=== PATIENT | female | born 1945 | race Caucasian/White ===

== ENCOUNTER 2024-09-10 06:08 | Day surgery (SDC) | payer MEDICARE, OTHER, SELFPAY ==
--- NOTE | 2024-09-09 16:06 | CONSULT.STRU ---
Consultation
-
Date/Time Consultation Requested: 09/10/2024
Date/Time Consultation Performed: 09/10/2024
Requesting Provider: Max Rocha MD
Performing Provider: EMERALD Calixto
Reason for Consultation: /TAVR
Patient History
Physicians
Family Physician: Nkechi Nichols DO
Outpatient Horse Trekking Guide: Gennaro Ny MD
Primary Horse Trekking Guide: Gennaro Ny MD
History of Present Illness
Ms. 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 Her echocardiogram from 07/31/2024 demonstrates an EF 60%, MAC with mid-moderate
MR, AV P/M54/42, mild-moderate , mild TR. From a symptomatic standpoint patient describes CAMPUZANO and fatigue. Ms. Shell states she was able to walk 1 mile on the treadmill 1 year ago and now can only do about 1/4 of a mile before she needs to rest.
Discussed the pathophysiology and treatment options of aortic stenosis including SAVR and TAVR. Explained the evaluation process comprising of repeat labs, TAVR CT scan, CT surgical consult, dental clearance, and a heart team discussion. TAVR
booklet, prescriptions, appointments, and contact information given to patient.
Past Medical History
Past Medical History: Atrial Fib (AT/Aflutter/ possible AF), HTN, Radiation (to chest), Valvular Disease (aortic stenosis) and Other (non-Hodgkins, CHB, NICM, diverticulosis, osteoporosis, hypercalcemia, hyperlipidemia, hypercalcemia)
Past Surgical History
Past Surgical History: Appendectomy and Other (PPM, ICD, lymph node resection, bilateral cataract)
Dental History
Dr. Salazar-- patient states she is UTD (last visit 06/2024)
Family History
Mother: at Age (664) and Cause of (malignant neoplasm)
Father: at Age (67) and Cause of (heart disease)
Social History
Alcohol: Occasional
Drug: None
Tobacco: Non-Smoker
Personal:
Living: With Spouse
Employment: Retired
Allergies
bandaids
Home Medications
Cyclobenzaprine HCl 5 MG Tablet TK 1 T PO D PRF BACK SPASMS Oral prn
Famciclovir 500 MG Tablet 1 tablet Orally Once a Day
Lisinopril 2.5 MG Tablet 1 tablet Orally Twice a Day
Metoprolol Tartrate 25 MG Tablet 1/2 tablet Orally Twice a day
Pred Mild(prednisoLONE Acetate) 0.12 % Suspension INT 1 GTT INTO OS ONCE A WEEK Ophthalmic
Rosuvastatin Calcium 10 MG Tablet TAKE 1 TABLET BY MOUTH ONCE DAILY
STS%
STS %: 8
Review of Systems
-
History Source: Patient
General: Reports Fatigue
HEENT: Reports No Symptoms
Respiratory: Reports CAMPUZANO
Cardiac: Reports No Symptoms
Abdomen/GI: Reports No Symptoms
: Reports No Symptoms
Musculoskeletal: Reports No Symptoms
Skin: Reports No Symptoms
Neurological: Reports No Symptoms
Vascular: Reports No Symptoms
Physical Exam
Labs
09/03/2024
HH: 12.4/37.0
Plt: 213K
BUN/CR: 11/08.02
GFR 56
Diagnostic Studies
ECHOCARDIOGRAM 07/31/2024
CONCLUSIONS
Technically suboptimal and limited study.
Grossly normal left and right ventricular systolic function.
Grade 2 diastolic dysfunction.
Chamber sizes were normal.
Severe aortic stenosis with mild to at most moderate aortic insufficiency.
Mild mitral, tricuspid and pulmonic regurgitation
Atherosclerotic aortic root
Compared to the report of echo Doppler from 04/04/2024, the mean aortic valve
gradient has minimally increased.
Aortic Valve
Aortic valve leaflets are poorly visualized. Number of leaflets cannot be
determined. The valve did appear to be thickened, calcified and deformed with
markedly decreased opening. There is mild to at most moderate aortic
insufficiency. Peak and mean gradients across aortic valve is in the range of
54 and 42 mmHg respectively. This would correspond with severe aortic
stenosis.
Procedure Type:�Isolated AVR
Perioperative Outcome Estimate %
Operative Mortality 8%
Morbidity & Mortality 12.6%
Stroke 1.5%
Renal Failure 3.71%
Reoperation 4.36%
Prolonged Ventilation 8.65%
Deep Sternal Wound Infection 0.038%
Long Hospital Stay (>14 days) 7.91%
Short Hospital Stay (<6 days)* 31.3%
Exam
General: Well Developed, Well Nourished, No Apparent Distress and Comfortable
HEENT: Normocephalic and EOMI
Neck: Trachea Midline
Respiratory: Clear (anteriorly)
Cardiac: S1/S2, Regular Rhythm and Murmur (IV/ ALEXANDRE)
GI: Soft and Non Tender
Rectal: Deferred by Provider
Skin: Warm and Dry
Neuro: Awake, Alert, Oriented and AO x 3
Psych: Calm
Assessment / Plan
-
Aortic Stenosis
Continue with TAVR evaluation
Trend creatinine after contrast (RX given)
TAVR CT scan (09/26)
CT surgical consult ([facility] 10/01)
Frailty testing and Kccq12 at consult
Dental clearance
Continue aspirin.
Heart team discussion
Data Reviewed
-
EKG: Tracing Personally Visualized and interpreted (nSR) and Report Reviewed by me
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
Echo: Report Reviewed by me and Discussed with Physician
Labs: Labs Reviewed by me
Old Records: Reviewed (Drs. Ny and Aj office notes)
Total Time Spent with Patient (in minutes): 45
[2024-09-10] VITALS (11 sets, daily range): BP systolic 119–145; BP diastolic 53–86; BMI 23.6
--- NOTE | 2024-09-10 16:16 | ITS.CL.PN ---
[facility] Director - Procedure Note
Procedure
Procedure Note:
CARDIAC CATHETERIZATION REPORT
Date of Procedure: 09/10/24
Referring: Dr. Gennaro Ny MD
Indication: severe aortic stenosis
PROCEDURE(S)
1. right heart catheterization
2. left heart catheterization
3. coronary angiography
ACCESS
1. 6F right radial artery (closure: radial band)
2. 5F right antecubital vein (closure: manual hemostasis)
3. 5F right femoral vein (closure: manual hemostasis)
CATHETERS
1. 5F [place]
2. 6F JR4
3. 6F JL3.5
4. 6F [place]
MODERATE SEDATION: 60 minutes of moderate sedation was utilized. An independent medical delivery technician was present to assist with and help manage the patient's level of consciousness and physiologic status.
ULTRASOUND GUIDED VASCULAR ACCESS (right radial artery): Ultrasound was utilized for vascular access. The vessel was visualized under ultrasound and noted to be patent. An image of the vessel was stored permanently in the patient's medical record.
Under direct ultrasound guidance, vascular access was obtained using a modified Seldinger technique and a 6 [place] sheath was placed.
ULTRASOUND GUIDED VASCULAR ACCESS (right brachial vein): Ultrasound was utilized for vascular access. The vessel was visualized under ultrasound and noted to be patent. An image of the vessel was stored permanently in the patient's medical record.
Under direct ultrasound guidance, vascular access was obtained using a modified Seldinger technique and a 5 [place] sheath was placed.
ULTRASOUND GUIDED VASCULAR ACCESS (right femoral vein): Ultrasound was utilized for vascular access. The vessel was visualized under ultrasound and noted to be patent. An image of the vessel was stored permanently in the patient's medical record.
Under direct ultrasound guidance, vascular access was obtained using a modified Seldinger technique and a 5 [place] sheath was placed.
HEMODYNAMIC DATA
LV 174/13 (EDP 28) mmHg
AO 142/67 (mean 99) mmHg
RA 17 mmHg
RV 47/9 (EDP 22) mmHg
PA 44/23 (mean 34) mmHg
SaO2 95.7 %
SvO2 54.5%
Hb 11.2 g/dL
CO/CI 2.78/1.99 L/min/m2
SVR 2358 dsc*-5
Mean gradient 33.4 mmHg
Valve area ([place]): 0.44 cm2 (indexed 0.31 cm2/m2)
SVI 25.2 mL/m2
CORONARY ANGIOGRAPHY
Dominance: right
LM: moderate caliber vessel, no significant CAD
LAD: moderate caliber vessel giving rise to several small diagonal branches and wrapping around the apex. There is a focal 40% stenosis in the proximal LAD and otherwise no obstructive CAD.
LCx: moderate caliber vessel giving rise to three marginal branches and a small LPL branch.
RCA: unable to selectively engage, no filing visualized with right cusp injection, visualized to fill via robust L-R collaterals back to the proximal vessel suggesting a proximal ECD.
RADIATION: dose 354 mGy; DAP 25.9 Gy*cm2; fluoroscopy time 23.7 min
CONCLUSIONS
1. elevated biventricular filling pressures, moderate post-capillary pulmonary hypertension, and reduced cardiac output
2. severe, low-flow low-gradient aortic stenosis
3. single vessel obstructive coronary artery disease with RCA ECD
RECOMMENDATIONS
1. expectant management after cardiac catheterization via right radial approach
2. medical management of RCA ECD with aggressive secondary prevention, daily ASA and high intensity statin
3. proceed with TAVR evaluation
Copy to: Dr. Gennaro Ny MD (photoengraver apprentice); Dr. Nkechi Nair DO (PCP)
Signed: Max Rocha MD, PhD
== END 2024-09-10 12:32 | disposition home or self-care (01) ==
LOC: CATH 06:08
PROVIDERS: ATTENDING PHYSICIAN Student in an Organized Health Care Education/Training Program; FAMILY PHYSICIAN Family Medicine; OTHER PHYSICIAN Internal Medicine Cardiovascular Disease
DX: I25.10 Atherosclerotic heart disease of native coronary artery without angina pectoris (principal); I48.91 Unspecified atrial fibrillation; I48.92 Unspecified atrial flutter; I08.3 Combined rheumatic disorders of mitral, aortic and tricuspid valves; I42.8 Other cardiomyopathies; E78.5 Hyperlipidemia, unspecified; I27.29 Other secondary pulmonary hypertension; Z95.0 Presence of cardiac pacemaker; Z85.72 Personal history of non-Hodgkin lymphomas; Z82.49 Family history of ischemic heart disease and other diseases of the circulatory system; Z79.82 Long term (current) use of aspirin
CPT/HCPCS: 99152; 99153; C1769; C1894; 93460; Q9967

== ENCOUNTER → 2024-09-26 09:05 | Outpatient (REF) | payer MEDICARE, OTHER, SELFPAY | LOC: RAD 09:05 | PROVIDERS: ATTENDING PHYSICIAN Nurse Practitioner Acute Care; FAMILY PHYSICIAN Family Medicine | DX: I35.0 Nonrheumatic aortic (valve) stenosis (principal) | CPT/HCPCS: 74174; 75572; Q9967 ==

== ENCOUNTER 2024-10-31 08:58 | Inpatient (IN) | payer MEDICARE, OTHER, SELFPAY ==
[2024-10-21 12:04] VITALS: BMI 23.1
[2024-10-21 12:47] LABS: Urine Albumin 2+ (Neg - Trace); Urine Bilirubin Negative (Negative); Urine Character Clear (Clear); Urine Color Yellow; Urine Glucose Negative (Negative); Urine Ketone Negative (Negative); Urine Leukocyte Negative (Negative); Urine Nitrite Negative (Negative); Urine Occult Blood Negative (Negative); Urine Specific Gravity 1.015 (<1.030); Urine Urobilinogen 1+ (Neg - 1+); Urine pH 6.5 (5.0-9.0)
[2024-10-21 12:48] LABS: % Basophils 0.9 % (0-2); % Eosinophils 4.5 % (0-6); % Immature Granulocytes 0.2 % (0-0.5); % Lymphocytes 25.4 % (20.5-51.1); % Monocytes 9.9 % (1.7-9.3); % Neutrophils 59.1 % (42.2-75.2); Absolute Basophils 0.1 10^3/uL (0-0.2); Absolute Eosinophils 0.3 10^3/uL (0-0.7); Absolute Lymphocytes 1.4 10^3/uL (1.2-3.4); Absolute Monocytes 0.6 10^3/uL (0.1-0.6); Absolute Neutrophils 3.3 10^3/uL (1.4-6.5); Hematocrit 37.2 % (37.0-47.0); Hemoglobin 12.4 g/dL (12.0-16.0); Mean Corp Hgb Conc. 33.3 g/dL (33.0-37.0); Mean Corpuscular Hgb 31.5 pg (27.0-31.0); Mean Corpuscular Volume 94.4 fL (81.0-99.0); Mean Platelet Volume 10.8 fL (7.4-10.4); Nucleated Red Blood Cells % 0 %; Platelet Count 204 10^3/uL (130-400); Red Blood Cell Count 3.94 10^6/uL (4.20-5.40); Red Cell Dist. Width 12.7 % (11.5-14.5); White Blood Cell Count 5.6 10^3/uL (4.8-10.8)
[2024-10-21 13:01] LABS: INR 1.04
[2024-10-21 13:02] LABS: APTT 27.6 Sec (23.4-35.0)
[2024-10-21 13:03] LABS: ALT (SGPT) 27 U/L (0-35); AST (SGOT) 34 U/L (14-36); Albumin 4.1 g/dl (3.5-5.0); Alkaline Phosphatase 122 U/L (38-126); Blood Urea Nitrogen 22 mg/dl (7-17); Carbon Dioxide 30 mmol/L (22-30); Chloride 105 mmol/L (98-107); Direct Bilirubin 0.2 mg/dl (0.0-0.4); Estimated Creatinine Clearance 35 ml/min; Glucose 88 mg/dl (70-99); Potassium 4.9 mmol/L (3.5-5.1); Sodium 142 mmol/L (135-145); Total Bilirubin 0.9 mg/dl (0.2-1.3); Total Protein 6.9 g/dl (6.3-8.2); eGFR > 60.00
[2024-10-21 13:10] LABS: NT-proBNP 1290 pg/ml
[2024-10-21 13:16] LABS: Urine Bacteria Few (Negative); Urine Hyaline Cast 0-2 /LPF (0-2); Urine Red Blood Cell 0-2 /HPF (0-2); Urine Squamous Cell 0-2 /LPF (Few)
[2024-10-21 13:26] LABS: Glycohemoglobin (HgbA1c) 5.8 % (4.0-5.6)
--- NOTE | 2024-10-21 14:14 | CM ---
Met with and Mrs. Garrett in [facility]. She states prior to admission she resides with her spouse in a spilt level home without any steps to enter. She states she has six steps to get to bedroom/full bathroom. She states she has a powder room on the
lower level. She states prior to admission she was independent with ambulation and adls. She states she does not have any DME in the home. She states she has a prescription plan with [employer] and does mail order and [facility] when needed.
Her spouse states he will be home to assist in her care if needed. The discharge plan is to return home with her spouse and a home visit by the Transitional Care Nurse when medically stable.
We reviewed pre-op and post-op routines. We reviewed the shower instructions. She has the soap, written instructions and the TAVR Educational Booklet. We also reviewed restrictions including driving and lifting restrictions. We discussed home
visit by the Transitional Care Nurse. She is agreeable to home visit. The plan is for TAVR on October.
[2024-10-31] VITALS (17 sets, daily range): BP systolic 107–154; BP diastolic 50–95; BMI 23.5
--- NOTE | 2024-10-31 09:07 | CM ---
Reviewed chart. Mrs. Garrett is in the operating room today. Prior to admission she resides with her spouse in a spilt level home without any steps to enter. She has six steps to get to bedroom/full bathroom. She has a bathroom on the lower level.
Prior to admission she was independent with ambulation and adls. She does not have any DME in the home. She has a prescription plan with [email or web address] and does mail order and [facility] when needed. Her spouse will be home to assist in her care
if needed. Medical work-up in progress. The discharge plan is to return home with her spouse and a home visit by the Transitional Care Nurse when medically stable.
--- NOTE | 2024-10-31 12:04 | W.CVOR.SURPR ---
CVOR Surgeon Immed Pre Op
-
I have examined this patient prior to performance of the scheduled procedure.
The patient's condition is unchanged from the time of the dictated/written History and
Physical and the patient is able to undergo the scheduled procedure.
TF TAVR
Full Rescue
[2024-10-31 13:53] LABS: ACT-LR - POC 258 Seconds (116-155)
[2024-10-31 14:04] LABS: ACT-LR - POC 302 Seconds (116-155)
--- NOTE | 2024-10-31 14:49 | W.PN.CT.SURG ---
CT Surgery Operative Note
-
OPERATIVE REPORT
Preoperative Diagnosis: Severe aortic valve stenosis, symptomatic
Postoperative Diagnosis: Same
Procedure(s) Performed: Right trans femoral TAVR with a 20 mm, nominal +1, Resilia Parada TAVR valve, post deployment balloon valvuloplasty
Date of Procedure: 10/31/2024
Comorbidities:
1. Severe aortic stenosis, symptomatic
2. Mild mitral valve insufficiency
3. Mild to moderate mitral annular calcification
4. Mild tricuspid valve deficiency
5. Nonobstructive CAD
6. Nonischemic cardiomyopathy
7. Atrial flutter
8. Non-Hodgkin's lymphoma
9. Heart block with PPM
10. Hyperlipidemia
11. Hypertension
Cardiac Surgeon: Daniel Mccrary MD, MS
Fountain Supervisor: Lcuiano Rocha MD
Anesthesia: Conscious Sedation and Local Analgesia
EBL: 60cc
Products: none
Implant: 20 mm Parada Resilia TAVR valve, nominal +1, SN: [id number]
Indication(s) for Procedures: 78-year-old female with symptomatic severe aortic stenosis. She has a small size BSA and is of small stature and so the consensus is to pursue a 20 mm TAVR valve which is appropriate for her size. CT-TAVR protocol
revealed acceptable anatomy for TAVR access and implantation.
Start time: 1321hrs
Deployment time: 1357hrs
End time: 1422hrs
Radiation Dose (mGy): 299.01
DAP (cm2.Gy): 22.6396
Fluoroscopy time (minutes): 14
Contrast volume (ml): 135
TAVR gradient (mmHg): 14mmHg
Heparin Dose: 5000units
Protamine Dose: 40mg
Final Valve Positionin/15
LVEDP: 22mmHg
Findings: Preoperative LVEF was 60% and was 60% following TAVR without inotropic support. Function was overall normal without regional wall motion abnormalities or dyskinesia. The aortic valve was well seated without detectable PVL and mean gradient
across the new valve was 15mmHg while up systolic blood pressure was nearly 180 mmHg, of note she did have poor windows, blood pressure at 130 yielded a mean gradient of approximately 14 mmHg. After deployment of the valve there was a significant
degree of ectopy likely caused from the stiff Amplatzer wire, once this was removed she returned to sinus while on the manager cath lab table with what look like a paced rhythm. There was successful placement of 20 mm, nominal +1 TAVR valve without acute
complications.
Access:
1. Device -right common femoral artery, perclose x 2
2. Pigtail -left common femoral artery [+ 6Fr angioseal]
3. Transvenous Pacer -left common femoral vein
Description of Procedure: The patient was taken to the manager cath lab. Their identity and procedure to be performed were verified and they were positioned supine on the manager cath lab table. Induction via conscious sedation. The patient was then prepped and
draped from chin to thigh in a sterile fashion. A preoperative time-out was performed with all members of the team present. Arterial and venous access was performed using fluoroscopy and ultrasound guidance with micropuncture and Seldinger
technique. Two perclose devices were used on the device side followed by access to the aorta with a stiff wire to faciltate E-sheath placement. Heparin was given. A stiff straight wire and AL-1 catheter was used to cross the aortic valve. The stiff
wire was exchanged for an extra stiff coiled tip wire. The valve was prepped and mounted on to the device carrier. An ACT of >250 was achieved. We verified x 3 that the valve was mounted in the correct orientation with the skirt of the valve
directed toward the tip of the device carrier. We advanced the device into the descending thoracic aorta where the valve was them mounted onto the balloon under fluoroscopy. The device was flexed and advanced over the arch into the root and
positioned across the aortic valve. Contrast fluoroscopy was used to visualize the prosthesis across the valve and to guide positioning. A pigtail catheter in the RCC as used as a guide. We aimed to have the bottom of the device marker at the
annular hinge point. The device sheath was pulled back. We performed a quick pre-deployment time out. The pacer was turned on and had capture. Blood pressure fell accordingly, angiography was done to verify the intended final placement and the valve
was deployed with 5 seconds of rapid pacing to nominal volume. The balloon was deflated and the pacer was turned off. We had recovery of vitals. The device carrier was unflexed and positioned back in the descending thoracic aorta. A transthoracic
echocardiogram was performed. We felt that we did not have full expansion of the valve and the gradient was 15 mmHg on echocardiogram. The wire was used to cross the valve again and we can push the device balloon back across the valve verifying in
multiple orientations that we were inside the valve. Under rapid pacing we inflated the balloon again and had good expension and shortening of the valve. The device was then again on flex and brought back into the ascending thoracic aorta.
Transthoracic echocardiogram demonstrated no significant changes that were concerning. Aortogram demonstrated no significant AI. The device was removed from the E-Sheath maintaining wire access followed by removal of the E-sheath as we cinched
down the perclose devices. There was acceptable hemostasis. The pigtail was withdrawn into the descending/abdominal and completion aortogram with runoff run-off angiography was performed. There was no stenosis or dissection of bilateral iliofemoral
systems. There was acceptable hemostasis of bilateral groins and manual pressure was held following wire removal. Low dose protamine was administered after checking another ACT.
All instrument, sponge, and needle counts were confirmed to be correct x 2 at the end of the operation. The patient was transferred to the cardiac intensive care unit in stable condition.
I, Dr. Daniel Mccrary, was present, scrubbed for, and performed all critical elements of this procedure.
Daniel Mccrary MD
Cardiothoracic Surgeon
[facility]
This operative dictation was created using the [email or web address] dictation system. Please excuse any grammatical, typographical, or 'sound alike' errors
--- NOTE | 2024-10-31 15:16 | W.PN.UPDATE ---
Update Note
Progress Note Update
Reviewed Ms. Garrett with the heart team in the preTAVR SDM meeting and confirmed a 20 mm S3. Patient will continue aspirin post TAVR. LVEDP 22mmHg. # 20mm S3 (serial# [id number]) successfully implanted via right transfemoral access. Post implant MG
14mmHg.
--- NOTE | 2024-10-31 15:47 | ITS.CL.PN ---
Fire Range Technician - Procedure Note
Procedure
Procedure Note:
TRANSCATHETER AORTIC VALVE REPLACEMENT REPORT
Date of Procedure: 10/31/2024
Referring: Dr. Gennaro Ny MD
Indication: symptomatic severe aortic stenosis
Operators: Max Rocha MD, PhD (interventional cardiology); Dr. Daniel Mccrary MD (CT surgery)
Anesthesia: conscious sedation provided by the anesthesia staff
PROCEDURE: transfemoral, transcatheter aortic valve replacement with a Parada RODERICK 3 Ultra RESILIA 20 mm valve
ACCESS:
1. 6F left femoral vein (closure: manual hemostasis)
2. 6F left common femoral artery (closure: Angioseal)
3. 14F right common femoral artery (closure: Perclose x2)
HEMODYNAMIC DATA
LV 159/5 (EDP 22) mmHg
PROCEDURE NARRATIVE:
The patient was prepped and draped in standard sterile fashion. Conscious sedation was provided by the anesthesia staff. 6F left femoral vein and left common femoral artery access was obtained with ultrasound guidance using micropuncture technique
with verification of appropriate arteriotomy location via hand injection angiography. A temporary venous pacing wire was advanced via the left femoral vein to the right ventricle under fluoroscopic guidance with appropriate capture verified. A 5F
pigtail catheter was advanced via the left common femoral artery and seated in the right coronary cusp. Angiography was performed to verify the co-planar angle.
8F right common femoral artery access was obtained with ultrasound guidance using micropuncture technique with verification of appropriate arteriotomy location via hand injection angiography. The arteriotomy was preclosed with two Perclose sutures
followed by replacement of the 8F sheath. Using an AL1 catheter, an Amplatz Extrastiff wire was placed in the descending thoracic aorta. The 8F sheath was removed and the 14 F Parada E-sheath was inserted over the Extrastiff wire and into the
descending aorta. Heparin 5000 units was given. The AL1 catheter was re-advanced through the E-sheath to the level of the ascending aorta. The Extrastiff wire was exchanged for a soft tipped straight wire which was used to cross the aortic valve and
deposit the AL1 in the LV apex. A J-wire was used to exchange the AL1 for a pigtail catheter in the LV and LVEDP was measured. An Amplatz Extrastiff wire with curved proximal end was advanced through the pigtail catheter and seated in the LV apex.
ACT was checked and confirmed to be >300 seconds.
The valve was brought to the table with orientation and deployment contrast volume verified. The valve was advanced over the Extrastiff wire and into the descending aorta. The balloon was withdrawn, and the valve was mounted on the balloon. The
valve was advanced over the aortic arch and into the aortic valve annulus. The pusher device was withdrawn. Low volume aortography confirmed valve positioning. The valve was deployed during rapid ventricular pacing. The balloon was walked back to
the descending aorta while leaving the wire in place. The patient was resuscitated by anesthesia with recovery of adequate blood pressure. Telemetry demonstrating sinus rhythm. Aortography demonstrated good valve positioning, adequate coronary
filling, and no aortic valve insufficiency. Echocardiography confirmed no aortic insufficiency. Mean valve gradient was 14 mmHg. Given the elevated gradient and evidence of mild frame under-expansion, decision was made to recross the valve with the
Amplatz wire and valve delivery system, and perform BAV with +1 cc of volume. This was accomplished with noted improved expansion and shortening of the valve frame. Aortogram again demonstrate no complication and no AI. Echo was repeated and again
demonstrated mean gradient of 14 mmHg and no AI. Given that the valve appeared to be fully optimized, the valve deployment system was removed.
The Parada E sheath was removed, and hemostasis obtained with the two Perclose sutures. Protamine 40 mg was given. Aortoiliac angiography demonstrated no evidence of iliofemoral dissection/perforation and good runoff below the common femoral artery
bilaterally. The pacemaker and the pigtail catheter were removed. The left femoral artery sheath was removed using a 6F Angioseal. The left femoral venous sheath was removed with manual pressure.
RADIATION: dose 299.01 mGy; DAP 22.6396 Gy*cm2; fluoroscopy time 14 min
CONCLUSIONS
1. successful placement of a Parada Roderick 3 Ultra RESILIA transcatheter aortic valve via right transfemoral approach with no acute complications
Copy to: Dr. Gennaro Ny MD (state patrol officer); Dr. Nkechi Nair DO (PCP)
Signed: Max Rocha MD, PhD
--- NOTE | 2024-10-31 16:06 | PTCARENOTE ---
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 VSS, monitor showing vpaced rhythm. BL groin sites c/d/i, no bleeding, no hematoma noted. Tolerating ice chips. Oriented to room, call gonzales in reach, family at bedside.
[2024-10-31] MEDS: FAMVIR 500 MG PO (18:47)
[2024-10-31] MEDS: LOPRESSOR 12.5 MG PO (19:48)
[2024-10-31] MEDS: ANCEF 5 IV (19:49)
--- NOTE | 2024-11-01 02:34 | W.PN.CT ---
Today's Communication / Plan
-
- no acute events overnight
- echo, EKG today
- OOB, ambulate
- restart home meds
- discharge planning
Assessment / Plan
-
s/p Right trans femoral TAVR with a 20 mm, nominal +1, Resilia Parada TAVR valve, post deployment balloon valvuloplasty POD#1
- Severe aortic stenosis, symptomatic
- Mild mitral valve insufficiency
- Mild to moderate mitral annular calcification
- Mild tricuspid valve deficiency
- Nonobstructive CAD
- Nonischemic cardiomyopathy
- Atrial flutter
- Non-Hodgkin's lymphoma
- Heart block with PPM
- Hyperlipidemia
- Hypertension
Subjective
Procedure
s/p Right trans femoral TAVR with a 20 mm, nominal +1, Resilia Parada TAVR valve, post deployment balloon valvuloplasty on 10/31/[address] Mccrary
-
Date of Service: November 01, 2024
Objective Data
-
Lab Results
11/01/24 03:24
11/01/24 03:24
PT 14.0 Sec (11.4-14.6) 10/21/24 12:15
INR 1.04 10/21/24 12:15
APTT 27.6 Sec (23.4-35.0) 10/21/24 12:15
Vital Signs
Vital Signs
Temp Pulse Resp BP Pulse Ox
98.0 F 96 16 118/60 94
10/31/24 22:54 10/31/24 22:52 10/31/24 22:54 10/31/24 22:52 10/31/24 22:54
CT Intake/Output/Weight
10/31/24 10/31/24 11/01/24
06:59 18:59 06:59
Intake Total 200 / 200
Balance 200 / 200
SaO2: 94
Physical Exam
-
General: AOx3
Cardiovascular: Regular rate & rhythm
Respiratory: Clear
Incision: Dressing Intact
Extremities: No Edema
[2024-11-01 03:09] VITALS: BMI 23.7
[2024-11-01 03:10] VITALS: BP 132/66
--- NOTE | 2024-11-01 03:44 | PTCARENOTE ---
pt V paced on monitor, denies pain or any discomfort. B/L groin dsg dry and intact. pt ambulates with x1 assist. Call gonzales in reach
[2024-11-01 04:00] LABS: Hematocrit 37.9 % (37.0-47.0); Hemoglobin 12.9 g/dL (12.0-16.0); Mean Corpuscular Volume 91.1 fL (81.0-99.0); Mean Platelet Volume 10.6 fL (7.4-10.4); Platelet Count 192 10^3/uL (130-400); Red Blood Cell Count 4.16 10^6/uL (4.20-5.40); Red Cell Dist. Width 12.4 % (11.5-14.5); White Blood Cell Count 7.7 10^3/uL (4.8-10.8)
[2024-11-01 04:34] LABS: Blood Urea Nitrogen 25 mg/dl (7-17); Calcium 10.1 mg/dl (8.4-10.2); Carbon Dioxide 24 mmol/L (22-30); Chloride 106 mmol/L (98-107); Estimated Creatinine Clearance 37 ml/min; Glucose 154 mg/dl (70-99); Potassium 4.7 mmol/L (3.5-5.1); Sodium 141 mmol/L (135-145); eGFR > 60.00
[2024-11-01 07:27] VITALS: BP 122/60
--- NOTE | 2024-11-01 07:35 | W.DCSUMMARY ---
Discharge Summary
Discharge Data
Date of Admission: 10/31/24
Date of Discharge: 11/01/24
-
Pending Results: No
Hospital Course
Primary care physician: Nkechi Nair
Outpatient service writer: Gennaro Ny
Inpatient consultants: [facility]
Procedures:
1. Right trans femoral TAVR with a 20 mm, nominal +1, Resilia Parada TAVR valve, post deployment balloon valvuloplasty
Primary Diagnosis:
1. severe aortic stenosis
Secondary Diagnoses:
1. Mild mitral valve insufficiency
2. Mild to moderate mitral annular calcification
3. Mild tricuspid valve deficiency
4. Nonobstructive CAD
5. Nonischemic cardiomyopathy
6. Atrial flutter
7. Non-Hodgkin's lymphoma s/p chemo/radiation 1989
8. Heart block with Derick-Sci BiV ICD
9. Hyperlipidemia
10. Hypertension
HPI: 78-year-old female was electively admitted on for TAVR
Hospital course: Patient underwent a right transfemoral TAVR and post deployment balloon valvuloplasty with Dr. Daniel Mccrary and Luciano Pham. No issues post valve deployment. Groin sites intact without bleeding or hematoma. Postop day 1 EKG
reported atrial sensed ventricular paced rhythm at 89 bpm. Morning CXR reported gastric distention, with elevation of the left hemidiaphragm and minimal compressive partial atelectasis in left lower lobe. TTE reported an EF of 60 to 65% with AV
gradients of 8/5 mmHg. Trace AI, MR and mild TR. Patient was evaluated by cardiology and deemed stable for discharge to home.
Home medication changes:
None
Discharge Plan
-
Patient Disposition: Home (Routine Discharge)
Discharge Diagnosis/Procedures: TF-TAVR
Condition: Good
Diet: Low Cholesterol and 2 Gram Sodium
Activity: As tolerated
Driving Restrictions: No driving for 1 week
Bathing Restrictions: OK to Shower
Others Tests: 30 Day follow up echocardiogram: 12/03/2024 at 1:20pm in Dr. Ny's Office.
Other Services: Cardiac Rehab
Wound Care: Please do not apply lotions, creams or powders to groin areas. Please monitor for increased pain, redness, swelling or drainage. Notify your doctor if any occur.
Specialty Instructions: Weigh Daily- Call MD for wt gain/loss 3 lbs overnight/5 lbs in 1 week
Referrals:
CT Transitional Care Nurse [Outside]
(
The Cardiothoracic Transitional Care Nurse will call you to set up a visit in 1-2 days.)
Nkechi Nair DO [Family Provider] - (Please make an appointment in four to six weeks. )
Gennaro Ny MD [Active] - 12/11/24 1:20 pm
Prescriptions:
Continued
acetaminophen 500 mg Tablet
500 mg PO Q6H PRN (Reason: Pain)
famciclovir 500 mg Tablet
500 mg PO 1800
ibuprofen 200 mg Tablet
200 mg PO Q6H PRN (Reason: Pain)
cyclobenzaprine 5 mg Tablet
5 mg PO TID PRN (Reason: Back Spasm)
aspirin 81 mg tablet,delayed release (DR/EC)
81 mg PO DAILY Qty: 1 0RF
Pred Mild 0.12 % Drops,Suspension
1 drp LEFT EYE MO Qty: 0 0RF
lisinopril 2.5 mg Tablet
2.5 mg PO BID Qty: 0 0RF
rosuvastatin 10 mg Tablet
10 mg PO DAILY Qty: 0 0RF
metoprolol tartrate 25 mg Tablet
12.5 mg PO BID Qty: 0 0RF
Discharge Orders:
Discharge Patient (As Directed); Ordered 11/01/24
Ordered By: Mary Alice Kumar
Care Plan Goals
Care Plan Goals:
Problem: Readiness for enhanced knowledge related to diagnosis and treatment plan
Goal: Understand your diagnosis and treatment plan needs, including medications if applicable.
Instructions: Know your diagnosis, underlying causes and treatment plan options, including medications if applicable. Consult with your health care team to learn about your diagnosis and treatment plan, including medications if applicable.
Discharge Date and Time
Print Language: NEPALI
--- NOTE | 2024-11-01 07:52 | W.PN.ANS.POP ---
Anesthesia Post Operative
- Anesthesia Post Op Note
Vital Signs Stable-See Nursing Note: Yes
Airway Patent: Yes
Adequate Pain Control: Yes
Change in Mental Status: No
Current Postoperative Nausea & Vomiting: No
Anesthesia Complications: No
General Anesthetic Recall: No
Unplanned Admission: No
Post Op Hydration Adequate: Yes
--- NOTE | 2024-11-01 09:18 | CARDSERVLU ---
Echocardiogram with Lumason completed after protocol screening completed. Allergies verified.
Patent IV site: _left AC____
IV site flushed with 0.9% NaCl pre and post administration.
Diluted bolus method utilized to enhance visualization of ventricular alvarado.
Total volume given: _3.5_ mL
Patient tolerated all procedures well without complications.
[2024-11-01] MEDS: ASPIR LOW (ENTERIC COATED) 81 MG PO (09:31)
[2024-11-01] MEDS: LOPRESSOR 12.5 MG PO (09:31)
[2024-11-01] MEDS: CRESTOR 10 MG PO (09:31)
--- NOTE | 2024-11-01 09:56 | W.PN.CD ---
Today's Communication / Plan
-
echo
discharge planning
Impression / Plan
-
78 yo female with PMH of severe , BiV PPM, HTN, hyperlipidemia admitted s/p TAVR.
s/p TAVR
-doing well
-AsVp rhythm
-cont ASA 81mg daily
-echo
HTN
-stable: cont metoprolol and lisinopril
Hyperlipidemia
-stable: cont rosuvastatin
Physical Exam
Vital Signs/Labs
Vital Signs
Temp Pulse Resp BP Pulse Ox
98.6 F 103 20 122/70 98
11/01/24 07:28 11/01/24 09:31 11/01/24 07:28 11/01/24 09:31 11/01/24 09:24
10/31/24 11/01/24 11/02/24
06:59 06:59 06:59
Actual Weight 47.9 kg
11/01/24 03:24
11/01/24 03:24
PT 14.0 Sec (11.4-14.6) 10/21/24 12:15
INR 1.04 10/21/24 12:15
APTT 27.6 Sec (23.4-35.0) 10/21/24 12:15
10/21/24
12:15
Npy-Y-Ekhssplyobc Pept 1290
Physical Exam
Constitutional: No acute distress and Comfortable
EENT: Moist mucous membranes
Cardiovascular: Rhythm & rate is regular, Pedal edema is absent, JVD pressure is normal and Systolic murmur absent
Respiratory: Respiratory effort normal and Lungs clear to auscul.
Neuro/Psych: AO x 3
Data Reviewed
-
Date of Service: November 01, 2024
EKG: Other (Tele: AsVp 80s, no arrhythmia)
Labs: Labs Reviewed by me
[2024-11-01 10:38] VITALS: BP 138/63
[2024-11-01 10:49] VITALS: BP 147/72
[2024-11-01 11:15] VITALS: BP 129/64
--- NOTE | 2024-11-01 11:37 | CM ---
CM following for DC planning needs.
Met w/ patient at bedside. Pt. POD#1 from TAVR.
Pt. reports that she feels well. We reviewed DC plan for home w/ CT Transitional Care RN.
Reviewed post op MD appointments + post op restrictions.
Plan is for home w/ CT Transitional Care RN.
No other needs noted.
[2024-11-01 12:50] VITALS: BP 138/63; BP 142/72; PULSE 94; O2SAT 95; O2SAT 96
--- NOTE | 2024-11-01 13:41 | PTCARENOTE ---
Pt up walking around. She denies any discomfort. 100% vent paced rhythm on telemetry. Pt had an Echo. Pt was seen by Cardiac Rehab, Mary Alice Kumar, ANDREI and . Telemetry and IV device removed. Discharge instructions reviewed with pt and
her regarding activity and driving guidelines, wound care, medications and their actions, follow up appt's and 30 day Echo. Excellent understanding verbalized. Pt escorted out via wheelchair and pt discharged to home.
== END 2024-11-01 13:35 | disposition home or self-care (01) | DRG 267 ==
LOC: IVU 08:58
PROVIDERS: Physician Assistant Medical; ADMITTING PHYSICIAN Thoracic Surgery (Cardiothoracic Vascular Surgery); FAMILY PHYSICIAN Family Medicine; OTHER PHYSICIAN Student in an Organized Health Care Education/Training Program
PROC: 02RF38Z Replacement of Aortic Valve with Zooplastic Tissue, Percutaneous Approach (ICD-10-PCS; 2024-10-31)
DX: I35.0 Nonrheumatic aortic (valve) stenosis (principal); Z00.6 Encounter for examination for normal comparison and control in clinical research program; C85.90 Non-Hodgkin lymphoma, unspecified, unspecified site; I42.8 Other cardiomyopathies; I48.92 Unspecified atrial flutter; I25.10 Atherosclerotic heart disease of native coronary artery without angina pectoris; I45.9 Conduction disorder, unspecified; E78.5 Hyperlipidemia, unspecified; I10 Essential (primary) hypertension; I34.81 Nonrheumatic mitral (valve) annulus calcification; I34.0 Nonrheumatic mitral (valve) insufficiency; Z95.0 Presence of cardiac pacemaker; Z79.82 Long term (current) use of aspirin
CPT/HCPCS: 93308; 33361; 36415; 71045; 71046; 80048; 80053; 81003; 81015; 82248; 83036; 83880; 85025; 85027; 85347; 85610; 85730; 86850; 86900; 86901; 87070; 93005; 93321; 93325; C1760; C1769; C1894; Q9950; Q9967

== ENCOUNTER 2024-11-02 15:51 | Emergency (ER) | payer MEDICARE, OTHER, SELFPAY ==
[2024-11-02 15:56] VITALS: BP 185/95
--- NOTE | 2024-11-02 16:23 | ED.GENMED ---
History of Present Illness
General
Chief Complaint: Dizziness
Time Seen by Provider: 11/02/24 16:11
History of Present Illness
History of Present Illness:
Patient is a 78-year-old woman with history of aortic stenosis status post TAVR, third-degree heart block status post pacer presenting to the emergency department with vomiting and dizziness. Per chart review patient was discharged yesterday after
she had a TAVR that was uncomplicated. She states that she was feeling fine. This morning she woke up she was lightheaded dizzy with position changes especially from sitting to standing. She then developed some vomiting. No diarrhea. No
abdominal pain. No chest pain. No shortness of breath no recent sick contacts. She does state that she only drinks 4 ounces of water a day. She does drink a significant amount of iced tea.
Phy Exam
Physical Exam
Physical Exam:
GENERAL: in no acute distress
HEENT: normocephalic, extraocular movements intact, dry oral mucosa
NECK: normal inspection
RESPIRATORY: no respiratory distress, clear to auscultation bilaterally
CARDIOVASCULAR: regular rate and rhythm
ABDOMEN/: soft, non-distended, non-tender to palpation, no rebound or guarding, TAVR site clean dry intact
EXTREMITIES: non-tender, no edema/swelling
NEUROLOGIC: awake and alert, moves all extremities
SKIN: warm
Course
Orders/Labs/Results
Orders:
Orders
11/02/24 15:55
EKG [Electrocardiogram (*1)] Urgent
Reason for Study: Vertigo / Dizzy
EKG- Treatment ONCE
11/02/24 16:21
0.9% Sodium Chloride 500 ml [Nss] 500 ml IV BOLUS
Ondansetron Injectable [Zofran] 4 mg IV NOW STA
11/02/24 16:22
CT Abd/pelvis W Iv Cont Urgent
Comment:
Reason For Exam: vomtting
11/02/24 16:27
COVID-19 Antigen Urgent
Source: Nasal Swab
Complete Blood Count/With Diff Urgent
Comprehensive Metabolic Panel Urgent
Influenza A+B Rapid Molecular Urgent
TR[place]ON Source: Nasal Swab
Specimen Description:
Abnormal Lab Results
11/02/24
16:27
RBC 3.80 L 10^6/uL
(4.20-5.40)
Hgb 11.8 L g/dL
(12.0-16.0)
Hct 35.6 L %
(37.0-47.0)
MCH 31.1 H pg
(27.0-31.0)
MPV 10.6 H fL
(7.4-10.4)
Absolute Monos (auto) 0.7 H 10^3/uL
(0.1-0.6)
Lymphocytes % 14.7 L %
(20.5-51.1)
BUN 23 H mg/dl
(7-17)
Glucose 139 H mg/dl
(70-99)
Calcium 10.6 H mg/dl
(8.4-10.2)
AST 44 H U/L
(14-36)
Alkaline Phosphatase 137 H U/L
(38-126)
11/02/24 16:27
11/02/24 16:27
Vital Signs
Initial and Last Documented VS:
Initial Vital Signs
Temp Pulse Resp BP Pulse Ox
97.9 F 98 20 185/95 98
11/02/24 15:56 11/02/24 15:56 11/02/24 15:56 11/02/24 15:56 11/02/24 15:56
Last Documented Vital Signs
Temp Pulse Resp BP Pulse Ox
97.9 F 100 26 159/72 96
11/02/24 15:56 11/02/24 17:43 11/02/24 17:43 11/02/24 17:43 11/02/24 17:43
MDM/Problems Addressed
Differential Diagnosis Includes:
Patient is a 78-year-old woman presenting to the emergency department vomiting and dizziness. Vitals unremarkable exam does show dry oral mucosa. Benign abdomen. Dizziness is likely orthostatic in nature. History exam does not suggest central
cause of the dizziness. Unclear etiology of vomiting. She does have a benign abdomen so less likely to be an acute abdomen. Will check basic blood work and respiratory swabs. Will give fluids and antiemetics. After shared decision making we
will obtain CT scan to rule out any intra-abdominal pathology.
*Critical Care Note
Total Time (30-74mins, 75-104mins- exclusive of procedures): Not Applicable
Update Note
Update Note:
On reevaluation patient does feel slightly better. Blood work is reassuring. Of note her hemoglobin is 11.8 and that was 12.9 yesterday. Patient will follow-up with her PCP to have it repeated next week.
CT scan per my interpretation with elevated left hemidiaphragm with significant gastric distention and elevated left hemidiaphragm. She also has significant amount of stool as well. She does state that she has been constipated. Patient does state
that her left side of her diaphragm stopped working after they had to surgically remove some cancer. She denies any heartburn feeling indigestion or reflux. She does state that since she has received the fluids she feels much better. The
lightheadedness dizziness has also improved.
Per the official read there are findings of gastritis and esophagitis with a small hiatal hernia. Patient advised taking Prilosec. Patient is tolerating p.o. Patient advised to increase fluid intake and to add MiraLAX.
All questions answered. Patient stable for discharge at this time.
ED Attending Note
-
Portions of this chart may have been created with voice recognition software.� Occasional wrong word or��sound alike� substitutions may have occurred due to the inherent limitations of voice recognition software.
Discharge Plan
Departure
Patient Disposition: Home (Routine Discharge)
Date of Disposition: 11/02/24
Time of Disposition: 18:07
Patient with high blood pressure during this ER visit?: Yes
Discharge Problem:
Vomiting, Dizziness, Esophagitis
Instructions: Nausea and Vomiting, Adult (DC), Dizziness
Prescriptions:
New
ondansetron 4 mg tablet,disintegrating
4 mg PO Q8H PRN (Reason: nausea and vomiting) 3 Days Qty: 7 0RF
No Action
acetaminophen 500 mg Tablet
500 mg PO Q6H PRN (Reason: Pain)
famciclovir 500 mg Tablet
500 mg PO 1800
ibuprofen 200 mg Tablet
200 mg PO Q6H PRN (Reason: Pain)
cyclobenzaprine 5 mg Tablet
5 mg PO TID PRN (Reason: Back Spasm)
aspirin 81 mg tablet,delayed release (DR/EC)
81 mg PO DAILY Qty: 1 0RF
Pred Mild 0.12 % Drops,Suspension
1 drp LEFT EYE MO Qty: 0 0RF
lisinopril 2.5 mg Tablet
2.5 mg PO BID Qty: 0 0RF
rosuvastatin 10 mg Tablet
10 mg PO DAILY Qty: 0 0RF
metoprolol tartrate 25 mg Tablet
12.5 mg PO BID Qty: 0 0RF
Referrals:
Nkechi Nair DO [Family Provider] -
Activity Restrictions/Additional Instructions:
You have been evaluated in the Emergency Department today for nausea and vomiting. Your evaluation suggests that your symptoms are most likely due to viral illness which will improve on its own with rest and fluids. Remember to drink plenty of
fluids at home especially to help with the lightheadedness dizziness that you have been having. Please drink at least 8 glasses of water a day. You may also add MiraLAX to help with your stool.
I did prescribe you Zofran every 8 hours as needed for nausea/vomiting. Please start taking Prilosec as you were found to have some inflammation of your esophagus/stomach.
Please follow up with your primary care physician. Please make sure you have your hemoglobin repeated next week to make sure it is stable.
Return to the Emergency Department if you experience worsening or uncontrolled pain, inability to tolerate fluids by mouth, difficulty breathing, fevers 100.4�F or greater, recurrent vomiting, or any other concerning symptoms.
Thank you for choosing us for your care.
Interventions
Interventions:
*Risk Screen - Suicide Last Done: 11/02/24 16:01
*General Assessment Last Done: 11/02/24 16:36
*Neglect/Abuse Screening Last Done: 11/02/24 16:01
*ED- Fall Risk Assessment Last Done: 11/02/24 16:36
*ED COVID-19 Vaccine History Last Done: 11/02/24 16:01
DI-Bheklq-Ntuserjzsi Assessment Last Done: 11/02/24 16:36
ED- Cardiac Assessment Last Done: 11/02/24 16:36
ED- Neurological Assessment Last Done: 11/02/24 16:36
ED Swallowing Screen Last Done: 11/02/24 17:45
Discharge Date and Time
Print Language: DOMINICAN
[2024-11-02 16:26] VITALS: BMI 24.3
[2024-11-02] MEDS: NSS 500 IV (16:30)
[2024-11-02] MEDS: ZOFRAN 4 MG IV (16:33)
[2024-11-02 16:40] LABS: % Basophils 0.4 % (0-2); % Eosinophils 1.6 % (0-6); % Immature Granulocytes 0.2 % (0-0.5); % Lymphocytes 14.7 % (20.5-51.1); % Monocytes 8.2 % (1.7-9.3); % Neutrophils 74.9 % (42.2-75.2); Absolute Eosinophils 0.1 10^3/uL (0-0.7); Absolute Lymphocytes 1.2 10^3/uL (1.2-3.4); Absolute Monocytes 0.7 10^3/uL (0.1-0.6); Hematocrit 35.6 % (37.0-47.0); Hemoglobin 11.8 g/dL (12.0-16.0); Mean Corp Hgb Conc. 33.1 g/dL (33.0-37.0); Mean Corpuscular Hgb 31.1 pg (27.0-31.0); Mean Corpuscular Volume 93.7 fL (81.0-99.0); Mean Platelet Volume 10.6 fL (7.4-10.4); Nucleated Red Blood Cells % 0 %; Platelet Count 157 10^3/uL (130-400); Red Cell Dist. Width 12.8 % (11.5-14.5)
[2024-11-02 16:56] LABS: COVID-19 Antigen Negative (Negative)
[2024-11-02 16:57] LABS: ALT (SGPT) 31 U/L (0-35); AST (SGOT) 44 U/L (14-36); Albumin 4.5 g/dl (3.5-5.0); Alkaline Phosphatase 137 U/L (38-126); Blood Urea Nitrogen 23 mg/dl (7-17); Calcium 10.6 mg/dl (8.4-10.2); Carbon Dioxide 29 mmol/L (22-30); Chloride 105 mmol/L (98-107); Estimated Creatinine Clearance 38 ml/min; Glucose 139 mg/dl (70-99); Potassium 4.8 mmol/L (3.5-5.1); Sodium 141 mmol/L (135-145); Total Bilirubin 0.9 mg/dl (0.2-1.3); eGFR > 60.00
[2024-11-02 17:43] VITALS: BP 159/72
== END 2024-11-02 18:30 | disposition home or self-care (01) ==
LOC: EMR 15:51
PROVIDERS: EMERGENCY PHYSICIAN Student in an Organized Health Care Education/Training Program; FAMILY PHYSICIAN Family Medicine
DX: R11.10 Vomiting, unspecified (principal); R42 Dizziness and giddiness; K20.90 Esophagitis, unspecified without bleeding; Z95.2 Presence of prosthetic heart valve; Z11.52 Encounter for screening for COVID-19
CPT/HCPCS: 96374; 96361; 99284; 74177; 80053; 85025; 87502; 87811; 93005; Q9967